=== PATIENT | female | born 1990 ===

== ENCOUNTER 2024-02-29 14:53 | Inpatient (IN) ==
[2024-02-29] MEDS ORDERED: GADOBENATE DIMEGLUMINE 20 ML/VIAL IV ONE (14:54)
[2024-02-29] MEDS ORDERED: LIDOCAINE 1% 20 ML VIAL SQ ONE (14:54)
[2024-02-29 16:11] LABS: Basophils # (Auto) 0.03 K/mcL (0.00-0.30); Basophils % (Auto) 0.5 % (0.0-2.0); Eosinophils # (Auto) 0.44 K/mcL (0.00-0.70); Eosinophils % (Auto) 7.2 % (0.0-7.0); Hematocrit 38.1 % (34.1-44.9); Hemoglobin 12.7 g/dL (11.2-15.7); Lymphocytes # (Auto) 2.42 K/mcL (1.50-4.80); Lymphocytes % (Auto) 39.4 % (15.5-49.0); Mean Cell Volume 92.9 fL (80.0-100.0); Mean Corpuscular HGB Conc 33.3 g/dL (31.0-36.0); Monocytes # (Auto) 0.55 K/mcL (0.10-0.90); Neutrophils % (Auto) 43.9 % (38.0-78.0); Platelet Count 250 K/mcL (140-440); Red Cell Distribution Width 13.7 % (11.5-14.5); WBC 6.1 K/mcL (4.5-11.0)
[2024-02-29 16:33] LABS: ALT/SGPT 27 U/L (<40); AST/SGOT 30 U/L (<32); Albumin 4.6 gm/dL (3.2-5.2); Albumin/Globulin Ratio 2.1 (1.0-2.3); Alkaline Phosphatase 59 U/L (39-117); Bilirubin,Total 0.7 mg/dL (0.1-1.0); Blood Urea Nitrogen 11 mg/dL (6-20); Calcium 10.2 mg/dL (8.6-10.4); Carbon Dioxide 28 mmol/L (22-30); Chloride 101 mmol/L (96-108); Globulin 2.2 gm/dL (2.2-3.7); Glomerular Filtration Rate 125; Glucose 83 mg/dL (70-105); Potassium 4.1 mmol/L (3.3-5.1); Sodium 141 mmol/L (133-145); Thyroid Stimulating Hormone 1.73 uIU/mL (0.27-5.01)
[2024-02-29 16:34] LABS: Appearance,Urine CLOUDY (Clear); Bilirubin,Urine Negative (Negative); Color,Urine AMBER; Culture Indicated,Urine No; Glucose,Urine (UA) Negative (Negative); Ketones,Urine 5 mg/dL (Negative); Leukocyte Esterase,Urine 25 /uL (Negative); Mucus,Urine MANY /hpf; Nitrate,Urine Negative (Negative); Protein,Urine Negative (Negative); Specific Gravity,Urine 1.029 (1.000-1.035); Urine Blood Negative (Negative); Urine RBC 0 /hpf (0-3); Urine Squamous Epithelial Cell 3 /hpf (0-4); Urine WBC 4 /hpf (0-4)
[2024-02-29 16:47] LABS: INR 0.9 (0.9-1.1); Prothrombin Time 13.2 sec (11.9-14.5)
[2024-02-29 16:48] LABS: Free T4 (Free Thyroxine) 1.24 ng/dL (0.93-1.70)
[2024-02-29 16:50] LABS: Amphetamine Screen,Urine None detected; Barbiturate Screen,Urine None detected; Cannabinoid Screen,Urine Suspect Positive; Cocaine Screen,Urine None detected; Opiate Screen,Urine None detected; Oxycodone, Urine Screen None detected; Phencyclidine Screen,Urine None detected
[2024-02-29] MEDS: ACETAMINOPHEN 500 MG TABLET PO ONE (20:51)
[2024-03-01] MEDS: ACETAMINOPHEN 325 MG TABLET PO ONE (04:41)
[2024-03-01] MEDS ORDERED: IPRATROPIUM/ALBUTEROL 3 ML AMPUL.NEB NEB PRN (15:15)
[2024-03-01] MEDS ORDERED: POLYETHYLENE GLYCOL 3350 17 GM PACKET PO PRN (15:15)
[2024-03-01] MEDS ORDERED: POTASSIUM CHLORIDE 40 MEQ in DEXTROSE 5% IN WATER 500 ML IV PRN (15:15)
[2024-03-01] MEDS ORDERED: ONDANSETRON 4 MG/2 ML VIAL IV PRN (15:15)
[2024-03-01] MEDS ORDERED: MAGNESIUM SULFATE 2 GM/50 ML BAG IV PRN (15:15)
[2024-03-01] MEDS ORDERED: POTASSIUM CHLORIDE 20 MEQ TABLET PO PRN ×2 (15:15)
[2024-03-01] MEDS: 0.9 % SODIUM CHLORIDE 10 ML SYRINGE IV SCH (15:19)
[2024-03-01] MEDS: ACETAMINOPHEN 325 MG TABLET PO PRN (15:36)
[2024-03-01] MEDS ORDERED: BUTALB/ACETAMINOPHEN/CAFFEINE 1 TABLET PO PRN (17:52)
[2024-03-01] MEDS: BUTALB/ACETAMINOPHEN/CAFFEINE 1 TABLET PO PRN (18:11)
[2024-03-01 18:19] LABS: Appearance,CSF Clear; Nucleated Cells,CSF 1 /cumm (0-5); Red Blood Cell,CSF 1 /cumm (0-1)
[2024-03-01] MEDS: HYDROcodone/APAP 5/325MG TABLET PO PRN (19:40)
[2024-03-02] MEDS: KETOROLAC 30 MG/ML VIAL IV ONE (16:42)
[2024-03-02] MEDS: LORazepam 2 MG/ML VIAL IV PRN (16:42)
[2024-03-03] MEDS: SENNOSIDES 1 TABLET PO PRN (09:38)
[2024-03-03] MEDS: MAGNESIUM HYDROXIDE 30 ML ORAL.SUSP PO PRN (09:38)
[2024-03-03 12:36] VITALS: TEMP 97.9; O2SAT 97
[2024-03-03] MEDS: ONDANSETRON 4 MG ODT TABLET SL SCH (14:15)
[2024-03-03] MEDS: ALPRAZolam 0.25 MG TABLET PO SCH (14:18)
[2024-03-05 01:20] LABS: HSV 1 DNA, bPCR NOT DETECTED copies/mL; HSV 2 DNA, bPCR NOT DETECTED copies/mL
[2024-03-10 17:16] LABS: Myelin Basic Protein, CSF-SO < 2.0 mcg/L (< OR = 4.0)
== END 2024-03-03 15:28 | disposition home or self-care (01) | DRG 60 ==
LOC: ED 14:53 → MEDSUR 03-01 15:23
PROVIDERS: ADMIT Internal Medicine; ATTEND Internal Medicine